=== PATIENT | female | born 1945 | race Caucasian/White ===

== ENCOUNTER 2019-06-13 09:30 | Day surgery (SDC) | payer MEDICARE ==
[2019-06-12 10:27] VITALS: BMI 20.1
[2019-06-13] MEDS ORDERED: Lidocaine 2% PF 5 ML VIAL ONE (10:22)
[2019-06-13] MEDS ORDERED: PHENYLEPHRINE-NS 100 MCG/ML 10 ML SYRINGE ONE (10:22)
[2019-06-13] MEDS ORDERED: Fentanyl 100 MCG/2 ML VIAL ONE (10:22)
[2019-06-13] MEDS ORDERED: Bupivacaine 0.25% HCL 30 ML VIAL ONE (10:23)
[2019-06-13] MEDS ORDERED: Lidocaine 2% w/Epinephrine 1:200K 20 ML VIAL ONE (10:23)
[2019-06-13] MEDS ORDERED: PROPOFOL 200 MG/20 ML VIAL ONE (15:25)
[2019-06-13] MEDS ORDERED: Dexamethasone 20 MG/5 ML VIAL ONE (15:25)
[2019-06-13] MEDS ORDERED: ePHEDrine/0.9% NaCl/PF SYRINGE 50 mg/10 ml ONE (15:25)
--- NOTE | 2019-06-13 16:31 | OP ---
DATE OF PROCEDURE: 06/13/2019 PREOPERATIVE DIAGNOSES: 1. Soft tissue mass, left shoulder, greater than 4 cm. 2. Skin cyst, right posterior neck. PROCEDURES PERFORMED: 1. Excision of soft tissue mass, left shoulder, greater than 4 cm. 2. Excision of skin cyst, right posterior neck. ANESTHESIA: General. ESTIMATED BLOOD LOSS: Minimal. COMPLICATIONS: None. SPECIMEN: Left shoulder soft tissue mass and right posterior skin cyst. DESCRIPTION OF PROCEDURE: The patient was taken to the operating room and laid supine on operating table. After general anesthetic was obtained, the left shoulder and right posterior neck were prepped and draped in a sterile fashion. The previous transverse incision over the palpable mass was reopened. The soft tissue mass was dissected free from the surrounding structures and removed. Meticulous hemostasis was obtained. The wound was irrigated and closed using 3-0 Vicryl, 4-0 Monocryl, and Dermabond. Next, an elliptical incision was used to ellipse out the tissues over the right posterior neck skin cyst. The wound was closed using 4-0 Monocryl and Dermabond. The patient was sent to Recovery in stable condition. All instrument counts, needle counts, and lap counts were correct. Job ID: [id number]
--- NOTE | 2019-06-15 06:15 | PQF ---
[facility] POST DISCHARGE CLINICAL DOCUMENTATION IMPROVEMENT CLARIFICATION FORM l Todays Date: 06/15/19 l Patients Name STEPHANE LEE l l Admit Date 06/13/19 l Disch Date 06/13/19 Standards Analyst Name Joe Sheldon Email: [email or web address] Cell: [phone] To be completed by Standards Analyst: Present Clinical Indicators - Signs / Symptoms Results and Location in Medical Record [ ] Documentation of: [ ] [ ] Documentation of: [ ] [ ] Documentation of: [ ] [ ] Documentation of: [ ] [ ] Risks [ ] [ ] [ ] Treatment [ ] Lipoma L shoulder Epidermal inclusion cyst R neck Query for depth (subcutaneous, intramuscular) and margin size of excised L shoulder lesion Query for size and margins of excised R neck lesion [ ] [ ] To be completed by Physician: LINDA VARGAS The documentation in this patients record requires clarification to ensure coding compliance and accuracy. Check the appropriate box and include in your discharge summary. [ x] sub Q, 4 cm, no margins [ ] [ ] [ ] Please check this box if this does not apply to this patient [ ] Unable to determine [ ] Other diagnosis: Review the following information and exercise your independent professional judgment in responding to the clarification. Based upon the clinical findings, risk factors, and treatment, please clarify if you are treating one of the above probable or suspected diagnoses. Physician Signature: Date Time MTDD
== END 2019-06-13 13:00 | disposition home or self-care (01) ==
LOC: SDC 09:30
PROVIDERS: ATTEND Surgery
PROC: 0JBF0ZZ Excision of Left Upper Arm Subcutaneous Tissue and Fascia, Open Approach (ICD-10-PCS; principal; 2019-06-13)
DX: D17.22 Benign lipomatous neoplasm of skin and subcutaneous tissue of left arm (principal); L72.0 Epidermal cyst; M85.80 Other specified disorders of bone density and structure, unspecified site; Z79.810 Long term (current) use of selective estrogen receptor modulators (SERMs); Z79.82 Long term (current) use of aspirin; Z79.899 Other long term (current) drug therapy; Z88.2 Allergy status to sulfonamides
CPT/HCPCS: 88304; J0690; J1100; J2001; J2704; J3010; S0020